=== PATIENT | female | born 1990 | race Caucasian/White ===

== ENCOUNTER → 2018-08-26 | Outpatient (CLI) | payer BC ==
[2018-08-26 13:25] LABS: BASO % 0.2 % (0.0-1.0); EOS # 0.1 10^3/uL (0.0-0.50); EOS % 1.2 % (0.0-3.0); LYMPH # 1.8 10^3/uL (1.5-6.5); LYMPH % 22.2 % (24.0-44.0); MEAN CORPUSCULAR HEMOGLOBIN 28.8 pg (27.0-33.0); MEAN CORPUSCULAR HGB CONC 32.5 g/dl (32.0-36.5); MEAN CORPUSCULAR VOLUME 88.7 fl (80.0-96.0); MONO # 0.5 10^3/uL (0.0-0.8); MONO % 6.6 % (0.0-5.0); NEUTROPHILS # 5.7 10^3/uL (1.8-7.7); NEUTROPHILS % 69.4 % (36.0-66.0); PLATELET COUNT, AUTOMATED 246 10^3/uL (150-450); RED BLOOD COUNT 4.51 10^6/uL (4.00-5.40); WHITE BLOOD COUNT 8.2 10^3/uL (4.0-10.0)
[2018-08-26 13:32] LABS: ALT/SGPT 27 U/L (12-78); BILIRUBIN,TOTAL 0.2 MG/DL (0.2-1.0); CREATININE FOR GFR 0.56 MG/DL (0.55-1.30); GLOMERULAR FILTRATION RATE > 60.0 (>60); GLUCOSE CHALLENGE TEST 1 HOUR 109 MG/DL (LESS THAN 140); LDH LACTATE DEHYDROGENASE 163 U/L (84-246); URIC ACID 3.8 MG/DL (2.6-6.0)
[2018-08-26 13:52] LABS: CREATININE,RANDOM URINE 70.2 MG/DL; TOTAL PROTEIN,RANDOM URINE 7.1 MG/DL (0.0-12.0)
[2018-08-26 14:44] LABS: CHLAMYDIA DNA AMPLIFICATION NEGATIVE (NEGATIVE); GC DNA AMPLIFICATION NEGATIVE (NEGATIVE)
[2018-08-27 10:16] LABS: RUBELLA IgG QUALITATIVE IMMUNE (IMMUNE)
[2018-08-27 10:45] LABS: HEPATITIS C VIRUS ABY INDEX 0.1 INDEX (<0.8); HIV 1&2 SCREEN CENTAUR NEGATIVE (NEGATIVE)
== END ==
LOC: M SMT 07:56
PROVIDERS: ATTEND Advanced Practice Midwife
DX: O99.211 Obesity complicating pregnancy, first trimester (principal); Z3A.00 Weeks of gestation of pregnancy not specified

== ENCOUNTER → 2018-10-08 | Outpatient (CLI) | payer BC ==
--- NOTE | 2018-10-08 19:37 | REP ---
Clinical: Anatomical evaluation. Comparison: None. Findings: Examination demonstrates a single live intrauterine in transverse (head to maternal right) presentation. motion is identified by technologist. Placenta is noted anterior and grade zero without evidence for placenta previa or abruption. Amniotic fluid volume is normal. Cervix measures 4.4 cm in length and appears closed. No evidence for nuchal cord. Gestational age by LMP 18 weeks 2 days with PENNY 03/09/2019 . Gestational age by current measurements 18 weeks 3 days with PENNY 03/08/2019 . FHR equals 153 beats per minute. BPD 4.2 cm 18 weeks 5 days HC 15.3 cm 18 weeks 2 days AC 13.1 cm 18 weeks 4 days FL 2.8 cm 18 weeks 4 days HL 2.6 cm 18 weeks 0 days HC/AC ratio 1.17 Estimated weight 248 grams ( 58 percentile). Anatomical assessment demonstrates normal structures including cranium, choroid plexus, lungs, stomach, cord insertion/three-vessel cord, kidneys/bladder. Impression: Single live intrauterine in transverse lie demonstrating appropriate interval growth. Limited anatomical assessment warrants reevaluation and follow-up. Electronically Signed by Jesus Celeste MD 10/08/2018 07:28 P
== END ==
LOC: M RAD 16:36
PROVIDERS: ATTEND Advanced Practice Midwife
DX: O99.212 Obesity complicating pregnancy, second trimester (principal); Z3A.18 18 weeks gestation of pregnancy

== ENCOUNTER → 2018-11-04 | Outpatient (CLI) | payer BC ==
--- NOTE | 2018-11-04 22:08 | REP ---
Clinical: Anatomical evaluation. Comparison: 10/08/2018 . Findings: Examination demonstrates a single live intrauterine in breech presentation. motion is identified by technologist. Placenta is noted anterior and grade one without evidence for placenta previa or abruption. Amniotic fluid volume is normal. Cervix measures 4.2 cm in length and appears closed. No evidence for nuchal cord. Gestational age by LMP 22 weeks 1 day with PENNY 03/09/2019 . Gestational age by current measurements 22 weeks 5 days with PENNY 03/05/2019 . FHR equals 143 beats per minute. Estimated weight 542 grams ( 71 percentile). Anatomical assessment demonstrates normal structures including cranium, cavum, lungs, four-chamber heart/ventricular outflow tracts, diaphragm, stomach, cord insertion/three-vessel cord, kidneys/bladder, spine, and extremities. Impression: Single live intrauterine in breech presentation demonstrating appropriate interval growth. Continued limited evaluation of the cerebellum/posterior fossa and facial features. Remainder of the anatomical assessment is complete and normal. Electronically Signed by Jesus Celeste MD 11/04/2018 09:59 P
== END ==
LOC: M RAD 16:38
PROVIDERS: ATTEND Advanced Practice Midwife
DX: Z34.80 Encounter for supervision of other normal pregnancy, unspecified trimester (principal)

== ENCOUNTER → 2018-12-29 | Outpatient (CLI) | payer BC ==
[2018-12-29 10:52] LABS: BASO % 0.3 % (0.0-1.0); EOS # 0.1 10^3/uL (0.0-0.5); EOS % 0.7 % (0.0-3.0); HEMATOCRIT 35.1 % (36.0-47.0); HEMOGLOBIN 11.8 g/dl (12.0-15.5); LYMPH # 1.6 10^3/uL (1.5-5.0); LYMPH % 16.3 % (24.0-44.0); MEAN CORPUSCULAR HEMOGLOBIN 30.2 pg (27.0-33.0); MEAN CORPUSCULAR HGB CONC 33.6 g/dl (32.0-36.5); MEAN CORPUSCULAR VOLUME 89.8 fl (80.0-96.0); MONO # 0.5 10^3/uL (0.0-0.8); NEUTROPHILS # 7.8 10^3/uL (1.5-8.5); NEUTROPHILS % 77.1 % (36.0-66.0); PLATELET COUNT, AUTOMATED 228 10^3/uL (150-450); RED BLOOD COUNT 3.91 10^6/uL (4.00-5.40); WHITE BLOOD COUNT 10.1 10^3/uL (4.0-10.0)
[2018-12-29 11:23] LABS: ALT/SGPT 28 U/L (12-78); BILIRUBIN,TOTAL 0.2 MG/DL (0.2-1.0); CREATININE FOR GFR 0.53 MG/DL (0.55-1.30); GLOMERULAR FILTRATION RATE > 60.0 (>60); LDH LACTATE DEHYDROGENASE 185 U/L (84-246); URIC ACID 4.1 MG/DL (2.6-6.0)
[2018-12-29 11:32] LABS: CREATININE,RANDOM URINE 89.6 MG/DL; TOTAL PROTEIN,RANDOM URINE 13.5 MG/DL (0.0-12.0)
== END ==
LOC: M SMT 07:51
PROVIDERS: ATTEND Specialist
DX: O99.212 Obesity complicating pregnancy, second trimester (principal); Z3A.00 Weeks of gestation of pregnancy not specified; E66.9 Obesity, unspecified; O16.3 Unspecified maternal hypertension, third trimester

== ENCOUNTER → 2018-12-30 | Outpatient (CLI) | payer BC ==
--- NOTE | 2018-12-31 14:11 | REP ---
Clinical: Anatomical evaluation. Comparison: 11/04/2018 . Findings: Examination demonstrates a single live intrauterine in cephalic presentation. motion is identified by technologist. Placenta is noted anterior and grade I without evidence for placenta previa or abruption. Amniotic fluid volume is normal. Cervix measures 4.1 cm in length and appears closed. No evidence for nuchal cord. Gestational age by LMP 30 weeks 1 day with PENNY the 03/09/2019 . Gestational age by current measurements 31 weeks 0 day with PENNY 03/03/2019 FHR equals 146 beats per minute. BPD 7.6 cm 30 weeks 3 days HC 28.0 cm 30 weeks 4 days AC 28.4 cm 32 weeks 3 days FL 5.9 cm 30 weeks 5 days HL 5.3 cm 30 weeks 4 days HC/AC ratio 0.98 Estimated weight 1798 grams ( 75th percentile). Amniotic fluid index: 19.7 cm Umbilical cord SD ratio: 2.69 Impression: single live intrauterine in cephalic presentation demonstrating appropriate interval growth. No gross abnormalities are identified. Electronically Signed by Jesus Celeste MD 12/31/2018 02:03 P
== END ==
LOC: M RAD 14:57
PROVIDERS: ATTEND Specialist
DX: O99.212 Obesity complicating pregnancy, second trimester (principal); Z3A.31 31 weeks gestation of pregnancy

== ENCOUNTER → 2019-01-13 | Outpatient (CLI) | payer BC ==
--- NOTE | 2019-01-13 20:35 | REP ---
Clinical: Anatomical evaluation. Comparison: 12/30/2018 . Findings: Examination demonstrates a single live intrauterine in cephalic presentation. motion is identified by technologist. Placenta is noted anterior and grade I I without evidence for placenta previa or abruption. Amniotic fluid volume is normal. Cervix measures 3.0 cm in length and appears closed. No evidence for nuchal cord. Gestational age by LMP 32 weeks 1 day with PENNY 03/09/2019 . Gestational age by current measurements 32 weeks 0 days with PENNY 03/10/2019 . FHR equals 169 beats per minute. Estimated weight 1946 grams ( 47 percentile). Anatomical assessment demonstrates normal structures including cranium, cavum, facial features, diaphragm, stomach, and kidneys/bladder. Impression: 1. Single live intrauterine in cephalic presentation. 2. In conjunction with prior examinations anatomical assessment is nearly complete although images of the cerebellum/posterior fossa are again limited due to maternal body habitus and age . Electronically Signed by Jesus Celeste MD 01/13/2019 08:26 P
== END ==
LOC: M RAD 08:01
PROVIDERS: ATTEND Advanced Practice Midwife
DX: O13.3 Gestational [pregnancy-induced] hypertension without significant proteinuria, third trimester (principal); Z3A.32 32 weeks gestation of pregnancy

== ENCOUNTER → 2019-02-09 | Outpatient (CLI) | payer BC ==
[2019-02-09 19:26] LABS: HEMOGLOBIN A1c 5.5 %
== END ==
LOC: M PLALAB 15:06
PROVIDERS: ATTEND Advanced Practice Midwife
DX: O24.415 Gestational diabetes mellitus in pregnancy, controlled by oral hypoglycemic drugs (principal); O99.213 Obesity complicating pregnancy, third trimester; Z3A.00 Weeks of gestation of pregnancy not specified

== ENCOUNTER 2019-02-12 06:30 | Inpatient (IN) | payer BC ==
[2019-02-12] VITALS (23 sets, daily range): BP systolic 121–191; BP diastolic 61–95
[~2019-02-12] VITALS: Ht 165.1 cm; Wt 168.8 kg
[2019-02-12] MEDS ORDERED: VITA1MIS PO (07:06)
[2019-02-12] MEDS ORDERED: METF500T13 PO (07:06)
[2019-02-12 08:41] LABS: HEMATOCRIT 39.5 % (36.0-47.0); HEMOGLOBIN 12.5 g/dl (12.0-15.5); MEAN CORPUSCULAR HEMOGLOBIN 28.5 pg (27.0-33.0); MEAN CORPUSCULAR HGB CONC 31.6 g/dl (32.0-36.5); PLATELET COUNT, AUTOMATED 242 10^3/uL (150-450); RED BLOOD COUNT 4.39 10^6/uL (4.00-5.40); WHITE BLOOD COUNT 13.8 10^3/uL (4.0-10.0)
[2019-02-12] MEDS ORDERED: SLF 3 ML SYR IV PRN (11:30)
[2019-02-12] MEDS ORDERED: LR 1,000 ML IV SCH (11:57)
[2019-02-12] MEDS ORDERED: OXYTOCIN DRIP 30 UNITS in IV 1 EA IV SCH (12:00)
--- NOTE | 2019-02-12 13:02 | HPE ---
DATE OF ADMISSION: 02/12/2019 HISTORY: 28-year-old 2, para 1 female at 36-3/7 weeks gestation by early ultrasound who presents with spontaneous loss of fluid per vagina at 4:30 a.m. on the day of admission. Contracts increased in frequency and intensity after this. She continued to leak fluid. No vaginal bleeding. COURSE: The patient's care was initiated at 9 weeks gestation on 07/21/2018. Her blood pressure was 124/74, weight was 372 pounds. course complicated by class A2 gestational diabetes. The patient refused insulin treatment. The patient has a history of gestational hypertension and she did have some elevated pressures later in , but did not require medication. OBSTETRICAL HISTORY: 1. April 2015 vaginal delivery at 38 weeks, 6 pound 4 ounce female . MEDICAL HISTORY: 1. Obesity. 2. Depression. SURGICAL HISTORY: None. ALLERGIES: None. SOCIAL HISTORY: The patient lives in [place]. The father of the baby is involved. The patient smokes a small number of cigarettes daily. She denies alcohol or drug use. FAMILY HISTORY: Noncontributory. PHYSICAL EXAMINATION: Blood pressure 136/78, weight 375 pounds. She appears mildly uncomfortable. Head and neck exam normal. Lungs clear. Heart regular rate and rhythm. Abdomen nontender, gravid. heart tones category 1. Contractions every 3-5 minutes. Sterile vaginal exam grossly ruptured, clear fluid, 3 cm, 80%, -2, posterior, soft, vertex. Extremities nontender. LABS: Blood type AB positive. Rubella immune. RPR nonreactive. Group B Streptococcus (GBS) negative. ASSESSMENT: 28-year-old 2, para 1 female at 36-3/7 weeks gestation with gestational hypertension, class A2 gestational diabetes who presents with spontaneous rupture of membranes in early labor. PLAN: The patient was admitted on 02/12/2019.
[2019-02-12] MEDS ORDERED: SLF 3 ML SYR IV SCH (14:00)
[2019-02-12] MEDS ORDERED: BUTORPHANOL 2 MG/ML INJ (J0595) IV ONE (14:15)
[2019-02-12] MEDS ORDERED: PROMETHAZINE INJ 25 MG/ML VIAL (J2550) IV ONE (14:15)
[2019-02-12] MEDS ORDERED: fentaNYL 100 MCG/2 ML INJECTION (J3010) As Ordered ONE (15:20)
[2019-02-12] MEDS ORDERED: FENTANYL 2MCG/ML ROPIVACAINE 0.2% IN 0.9% NACL 100ML IVBAG As Ordered ONE (15:20)
[2019-02-12] MEDS ORDERED: IBUPROFEN 800 MG TAB PO PRN (16:45)
[2019-02-12] MEDS ORDERED: ONDANSETRON 4MG/2ML VIAL (J2405) IV PRN (16:45)
[2019-02-12] MEDS ORDERED: METHYLERGONOVINE MALEATE 0.2 MG TAB PO PRN (16:45)
[2019-02-12] MEDS ORDERED: MEASLES,MUMPS,RUBELLA VACCINE INJ (MMR-II) (90707) SC SCH (16:45)
[2019-02-12] MEDS ORDERED: ACETAMINOPHEN TAB 650MG DOSE (2X325MG) PO PRN (16:45)
[2019-02-12] MEDS ORDERED: RHOGAM 300 MCG (1500 IU) INJ (J2790) IM SCH (16:45)
[2019-02-12] MEDS ORDERED: DIBUCAINE 1% OINTMENT 30GM TOP PRN (16:45)
[2019-02-12] MEDS ORDERED: DOCUSATE SODIUM 100 MG CAP PO PRN (16:45)
[2019-02-12] MEDS ORDERED: ACETAMINOPHEN 500 MG TAB PO PRN (16:45)
[2019-02-12] MEDS ORDERED: IBUPROFEN 600 MG TAB PO PRN (16:45)
[2019-02-12] MEDS ORDERED: OXYTOCIN DRIP 30 UNITS in IV 1 EA IV ONE (17:00)
[2019-02-13 06:26] VITALS: BP 134/77
[2019-02-13] MEDS: PRENATAL VITAMINS CHEWABLE TABLET PO SCH (07:45)
--- NOTE | 2019-02-13 21:00 | DN ---
DATE OF DELIVERY: 02/12/2019 PREDELIVERY DIAGNOSIS: 36-3/7 weeks gestation, spontaneous rupture of membranes, labor. DISCHARGE DIAGNOSIS: Delivered. PROCEDURE: Spontaneous vaginal delivery. COMPUTER SECURITY MANAGER: Kyler Sahni MD ANESTHESIA: Epidural. ESTIMATED BLOOD LOSS: 300 mL. FINDINGS: 6 pound 8 ounce female . scores 8 and 9. DELIVERY SUMMARY: After a short second stage of 5 minutes, the patient had spontaneous delivery of a 6 pound 8 ounce female infant, scores 8 and 9 under epidural anesthesia. There was no nuchal cord. The shoulders delivered with ease. The was handed to the mother. The cord was doubly clamped and cut. The placenta delivered spontaneously and appeared to be intact. The patient received IV Pitocin immediately after delivery of the placenta. There were no vaginal lacerations present. Sponge counts were correct.
[2019-02-14] MEDS ORDERED: ACET-683 PO (06:13)
[2019-02-14] MEDS ORDERED: IBUP80TA PO (06:13)
[2019-02-14 06:21] VITALS: BP 123/75
[2019-02-14] MEDS: PRENATAL VITAMINS CHEWABLE TABLET PO SCH (08:53)
== END 2019-02-14 12:15 | disposition home or self-care (01) | DRG 560 ==
LOC: M LDO 06:30 → M LDI 07:40 → M OBS 18:37
PROVIDERS: ADMIT Advanced Practice Midwife; ATTEND Advanced Practice Midwife
PROC: 10E0XZZ Delivery of Products of Conception, External Approach (ICD-10-PCS; principal; 2019-02-12)
DX: O13.4 Gestational [pregnancy-induced] hypertension without significant proteinuria, complicating childbirth (principal); O60.14X0 Preterm labor third trimester with preterm delivery third trimester, not applicable or unspecified; E66.9 Obesity, unspecified; O24.429 Gestational diabetes mellitus in childbirth, unspecified control; Z37.0 Single live birth; Z3A.36 36 weeks gestation of pregnancy; F17.200 Nicotine dependence, unspecified, uncomplicated; O99.334 Smoking (tobacco) complicating childbirth; O99.214 Obesity complicating childbirth

== ENCOUNTER → 2019-05-12 | Outpatient (REF) | payer BC ==
[~2019-05-12] MED LIST: ACET-683 PO; IBUP80TA PO; METF500T13 PO; VITA1MIS PO
== END ==
LOC: M SFHCLERA 17:15
PROVIDERS: ATTEND Physician Assistant
DX: R50.9 Fever, unspecified (principal)